=== PATIENT | male | born 1960 | race Caucasian/White ===

== ENCOUNTER 2017-03-14 12:58 | Emergency (ER) | payer MEDICAID ==
[~2017-03-14] VITALS: Ht 177.8 cm; Wt 69.9 kg
[~2017-03-14 12:58] MED LIST: ALBU8.5H3 INH; ALBUTEROL MDI; AMOX1TAB61 PO; APIX5TAB PO; Famotidine PO; Folic Acid PO; GABA300C10 PO; GUAI200T3 PO; GUAI400T26 PO; HYDR-3138 PO; HYDR25CA PO; HYDR453. TP; NICO1PAT4 TD; PIPE3.373 IV; PRED10TA PO; QUET400T4 PO; SENN1TAB7 PO; THIA100T6 PO; Trazodone Hcl PO; Vancomycin Per Pharmacy MC
[2017-03-14] MEDS ORDERED: QUET400T4 PO (13:44)
[2017-03-14] MEDS ORDERED: ALBU18HF INH (13:44)
[2017-03-14] MEDS ORDERED: TIOT18CA INH (13:44)
[2017-03-14] MEDS ORDERED: ASPI-515 PO (13:44)
[2017-03-14] MEDS ORDERED: LORA-702 PO (13:44)
[2017-03-14] MEDS ORDERED: SODIUM CHLORIDE FLUSH 10ML SYR IVF ONE (14:00)
[2017-03-14 14:32] LABS: BLOOD UREA NITROGEN 8 mg/dL (7-18)
[2017-03-14 14:37] LABS: ASPARTATE AMINO TRANSFERASE 7 U/L (15-37)
[2017-03-14 14:39] LABS: IS PT STATUS REG ER OR PRE ER? YES
[2017-03-14] MEDS ORDERED: OMNIPAQUE 350 MG/ML, 100ML BOTTLE ONE (15:13)
[2017-03-14 15:55] VITALS: BP 128/87
== END 2017-03-14 15:57 | disposition home or self-care (01) ==
LOC: ED 15:05
DX: R04.2 Hemoptysis (principal); J44.9 Chronic obstructive pulmonary disease, unspecified; J98.4 Other disorders of lung; F17.210 Nicotine dependence, cigarettes, uncomplicated; Z87.01 Personal history of pneumonia (recurrent)
CPT/HCPCS: 36415; 71010; 71275; 80053; 84484; 85025; 85610; 85730; 93005; 99285; Q9967

== ENCOUNTER 2017-10-07 00:43 | Emergency (ER) | payer MEDICAID ==
[~2017-10-07] VITALS: Ht 177.8 cm; Wt 72.3 kg
[~2017-10-07 00:43] MED LIST changes: +ALBU18HF INH; -ALBU8.5H3 INH; +ALBU8.5H8 INH; +ASPI-515 PO; -GUAI400T26 PO; +GUAI400T66 PO; -HYDR-3138 PO; +HYDR-3237 PO; +LORA-702 PO; +NICO-486 TD; -NICO1PAT4 TD; +TIOT18CA INH
[2017-10-07] MEDS ORDERED: ALBUTEROL/IPRATROPIUM 2.5MG/0.5MG, 3 ML NPPB SCH (02:00)
[2017-10-07 02:16] LABS: HEMATOCRIT 46.1 % (39.2-51.8); HEMOGLOBIN 15.6 g/dL (13.7-18.0); WHITE BLOOD COUNT 8.9 x10^3/uL (3.4-10)
[2017-10-07 02:30] LABS: ASPARTATE AMINO TRANSFERASE 19 U/L (15-37); BLOOD UREA NITROGEN 13 mg/dL (7-18)
[2017-10-07] MEDS ORDERED: ALBUTEROL/IPRATROPIUM 2.5MG/0.5MG, 3 ML ONE (02:33)
[2017-10-07 02:39] LABS: IS PT STATUS REG ER OR PRE ER? YES
[2017-10-07] MEDS ORDERED: OMNIPAQUE 350 MG/ML, 100ML BOTTLE ONE (03:11)
[2017-10-07 04:21] VITALS: BP 117/76
== END 2017-10-07 04:24 | disposition home or self-care (01) ==
LOC: ED 02:04
DX: J43.9 Emphysema, unspecified (principal)
CPT/HCPCS: 36415; 71020; 71275; 80053; 83880; 84484; 85025; 93005; 94640; 99285; J7512; Q9967; J7620

== ENCOUNTER 2017-10-09 13:20 | Emergency (ER) | payer MEDICAID ==
[~2017-10-09] VITALS: Ht 177.8 cm; Wt 68.0 kg
[2017-10-09 13:25] VITALS: BP 110/82
[2017-10-09] MEDS ORDERED: DIPH,PERTUSS(ACELL),TET VAC/PF 0.5 ML IM-VACC ONE ×2 (14:00→14:52)
[2017-10-09] MEDS ORDERED: LIDOCAINE 1%, 20ML ONE (14:52)
== END 2017-10-09 16:46 | disposition home or self-care (01) ==
LOC: ED 16:03
DX: S01.81XA Laceration without foreign body of other part of head, initial encounter (principal); F10.120 Alcohol abuse with intoxication, uncomplicated; J44.9 Chronic obstructive pulmonary disease, unspecified; F17.210 Nicotine dependence, cigarettes, uncomplicated; W19.XXXA Unspecified fall, initial encounter; Y93.89 Activity, other specified; Y92.89 Other specified places as the place of occurrence of the external cause; Y99.8 Other external cause status
CPT/HCPCS: 12011; 70450; 70486; 72125; 90471; 90715

== ENCOUNTER 2017-10-19 10:19 | Emergency (ER) | payer MEDICAID ==
[~2017-10-19] VITALS: Ht 177.8 cm; Wt 72.1 kg
[2017-10-19 10:21] VITALS: BP 133/82
== END 2017-10-19 11:04 | disposition home or self-care (01) ==
LOC: ED 10:55
DX: S01.81XD Laceration without foreign body of other part of head, subsequent encounter (principal); J44.9 Chronic obstructive pulmonary disease, unspecified; X58.XXXD Exposure to other specified factors, subsequent encounter
CPT/HCPCS: 99281

== ENCOUNTER 2020-01-20 12:57 | Emergency (ER) | payer MEDICAID ==
[~2020-01-20] VITALS: Ht 170.2 cm; Wt 72.7 kg
[~2020-01-20 12:57] MED LIST changes: -GUAI200T3 PO; +GUAI200T37 PO; -GUAI400T66 PO; +GUAI400T81 PO; +SENN-177 PO; -SENN1TAB7 PO; -THIA100T6 PO; +THIA100T67 PO
[2020-01-20] MEDS ORDERED: ZIPRASIDONE 20 MG INJ IM ONE ×3 (13:09→14:30)
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
[2020-01-20 13:50] LABS: BASOPHILS # (AUTO) 0.09 x10^3/uL (0-0.1); BASOPHILS % (AUTO) 1 % (0-1); EOSINOPHILS # (AUTO) 0.06 x10^3/uL (0-0.4); EOSINOPHILS % (AUTO) 1 % (1-7); LYMPHOCYTES # (AUTO) 2.05 x10^3/uL (1-3.4); LYMPHOCYTES % (AUTO) 22 % (22-44); MD NO; MEAN CORPUSCULAR HEMOGLOBIN 32.5 pg (27.5-34.5); MEAN CORPUSCULAR HGB CONC 33.4 g/dL (33.2-36.2); MEAN CORPUSCULAR VOLUME 97.1 fL (81-97); MEAN PLATELET VOLUME 8.2 fL (7.4-10.4); MONOCYTES # (AUTO) 0.49 x10^3/uL (0.2-0.8); MONOCYTES % (AUTO) 5 % (2-9); NEUTROPHILS # (AUTO) 6.81 x10^3/uL (1.8-6.8); NEUTROPHILS % (AUTO) 72 % (42-75); PLATELET COUNT 331 x10^3/uL (130-400); RED BLOOD COUNT 4.83 x10^6/uL (4.38-5.82); RED CELL DISTRIBUTION WIDTH 15.1 % (9.4-14.8)
[2020-01-20 13:53] LABS: ANION GAP 15 mmol/L (5-15); CALCIUM 8.7 mg/dL (8.5-10.1); CHLORIDE 115 mmol/L (98-107); SALICYLATE LEVEL 5.5 mg/dL (2.8-20.0)
--- NOTE | 2020-01-20 13:57 | NUR ---
Unable to review home med list with pt at this time, pt refusing cooperation with staff and refusing to answer staff questions.
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
--- NOTE | 2020-01-20 14:26 | NUR ---
Psych PATIENT CARE ASSOCIATE at bedside. Pt intoxicated and not cooperative with staff. Psych PATIENT CARE ASSOCIATE to revisit pt in the AM.
[2020-01-20] MEDS ORDERED: LORazepam 2 MG/ML, 1ML IM PRN (15:00)
[2020-01-20] MEDS ORDERED: DIPHENHYDRAMINE 50 MG/ML, 1ML IM ONE (15:00)
[2020-01-20] MEDS ORDERED: DIPHENHYDRAMINE 50 MG/ML, 1ML ONE (15:10)
[2020-01-20] MEDS ORDERED: LORazepam 2 MG/ML, 1ML ONE (15:11)
--- NOTE | 2020-01-20 15:51 | NUR ---
LATE NOTE ENTRY DUE TO PT CARE. Pt provided medications per EMAR. Pt provided water and food. Sitter near doorway in direct line of sight for observation.
--- NOTE | 2020-01-20 16:17 | NUR ---
Pt sitting on gurney talking to sitter. No needs expressed at this time. Pt had been provided food and water. Pt cooperating with staff more at this time. Sitter reamins near bedside in direct line of sight for observation.
--- NOTE | 2020-01-20 16:39 | NUR ---
Pt resting on gurney with eyes closed with even chest rise and fall. No needs expressed at this time. Sitter in direct line of sight for observation. Room secured for SI and HI.
--- NOTE | 2020-01-20 16:41 | NUR ---
Hospital bed requested for pt.
--- NOTE | 2020-01-20 16:58 | NUR ---
Provided pt hospital bed.
[2020-01-20] MEDS ORDERED: LACTATED RINGERS 1,000 ML IVBOLUS ONE (17:00)
--- NOTE | 2020-01-20 17:32 | NUR ---
Pt resting with eyes closed on hospital bed with SI/HI precautions in place. No needs expressed at this time. Pt has unlabored respirations with even chest rise and fall. Sitter near doorway in direct line of sight for observation. Food orderd for pt for dinner tray.
[2020-01-20 18:15] VITALS: BP 114/76
--- NOTE | 2020-01-20 18:17 | NUR ---
PIV established and PIV fluids infusing per EMAR. Pt resting on gurney with eyes closed and unlabored respirations. Pt connected to NIBP cuff and continous pulse ox monitor. Pt on 2L oxygen via NC. Bedrails up x 2 for safety. Sitter in direct line of sight for observation. Call light within reach. No needs expressed at this time.
--- NOTE | 2020-01-20 18:59 | NUR ---
Provided bedside report to SWETHA Rangel. All questions answered. SWETHA Rangel to assume care of pt at this time
[2020-01-20 23:28] LABS: AMPHETAMINE SCREEN, URINE Negative (Negative); BARBITURATE SCREEN, URINE Negative (Negative); BENZODIAZEPINE SCREEN, URINE Negative (Negative); CANNABINOID SCREEN, URINE Positive (Negative); COCAINE SCREEN, URINE Negative (Negative); METHADONE SCREEN, URINE Negative (Negative); OPIATE SCREEN, URINE Negative (Negative)
--- NOTE | 2020-01-21 03:58 | NUR ---
Pt denies any SI or HI at this time. Pt denies having either last night, as well.
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
[2020-01-21] MEDS ORDERED: LORazepam 1MG TABLET ONE (07:40)
[2020-01-21] MEDS ORDERED: LORazepam 1MG TABLET PO PRN (08:00)
--- NOTE | 2020-01-21 13:29 | NUR ---
task rn: 2 bags of belongings given to pt. IV removed. DC papers given
== END 2020-01-21 13:32 | disposition home or self-care (01) ==
LOC: ED 13:50
DX: R45.851 Suicidal ideations (principal); G31.2 Degeneration of nervous system due to alcohol; J44.9 Chronic obstructive pulmonary disease, unspecified; F33.9 Major depressive disorder, recurrent, unspecified; F10.20 Alcohol dependence, uncomplicated; Y90.0 Blood alcohol level of less than 20 mg/100 ml
CPT/HCPCS: 36415; 80048; 80307; 82040; 85025; 96372; 99285; J1200; J2060; J3486; J7120